=== PATIENT | female | born 1970 | race Caucasian/White ===

== ENCOUNTER → 2024-07-28 08:07 | Outpatient (REF) | payer OTHER, SELFPAY | LOC: HWWDC 08:07 | PROVIDERS: ATTENDING PHYSICIAN Nurse Practitioner Adult Health | DX: Z12.31 Encounter for screening mammogram for malignant neoplasm of breast (principal) | CPT/HCPCS: 77063; 77067 ==

== ENCOUNTER → 2025-04-02 08:09 | Outpatient (REF) | payer OTHER, SELFPAY | LOC: HWRCS 08:09 | PROVIDERS: ATTENDING PHYSICIAN Internal Medicine Cardiovascular Disease; FAMILY PHYSICIAN Nurse Practitioner Adult Health | DX: I10 Essential (primary) hypertension (principal); I20.1 Angina pectoris with documented spasm | CPT/HCPCS: 93306 ==